=== PATIENT | female | born 1965 | race Caucasian/White ===

== ENCOUNTER 2017-07-22 18:56 | Emergency (ER) | payer SELFPAY ==
[~2017-07-22 18:56] MED LIST: DICY1TAB26 PO; OMEP20CA5 PO; Z.0.NO CURRENT MEDS
[2017-07-22 18:59] VITALS: BP 132/76; PULSE 107; RESP 18; TEMP 98.8; O2SAT 99
[2017-07-22] MEDS ORDERED: MULT-65 PO (19:33)
[2017-07-22] MEDS ORDERED: RESP: ALBUTEROL 2.5 MG/IPRATROPIUM 0.5 MG NEB (SCH) NEB ONE (19:45)
--- NOTE | 2017-07-22 19:54 | PD ---
HPI Chief Complaint: Respiratory Symptoms Time Seen by Provider: 19:26 Travel History International Travel<30 days: No Contact w/Intl Traveler<30days: No Traveled to known affect area: No History of Present Illness HPI Is a 51-year-old young woman presents to the emergency department complaining of cold congestion and rhinorrhea symptoms. She has had trouble with allergies normally. She works out in the sun a lot. She has had worse allergies in the past week but over the past couple days she has had more cough cold symptoms and is worried about pneumonia. No fevers or chills. She otherwise had been feeling generally well and healthy. She is taking Claritin but has not really helped. History Past Medical History Narrative Medical Allergic rhinitis Menopausal: Yes Social History Alcohol Use: Yes Tobacco Use: No Allergies-Medications (Allergen,Severity, Reaction): Coded Allergies: No Known Allergies (Verified , 12/16/09) Reported Meds & Prescriptions Reported Meds & Active Scripts Active Reported Multi-Vitamin Daily (Multiple Vitamin) 1 Tab Tab 1 Tab PO DAILY Review of Systems Except as stated in HPI: all other systems reviewed are Neg Physical Exam Narrative GENERAL: Well-appearing 51-year-old woman, no acute distress. SKIN: Focused skin assessment warm/dry. HEAD: Atraumatic. Normocephalic. EYES: Pupils equal and round. No scleral icterus. No injection or drainage. ENT: No nasal bleeding or discharge. Mucous membranes pink and moist. TMs are normal. Throat is normal. NECK: Trachea midline. No JVD. Minimal cervical adenopathy little bit tender. CARDIOVASCULAR: Regular rate and rhythm. No murmur appreciated. RESPIRATORY: No accessory muscle use. Clear to auscultation. Breath sounds equal bilaterally. GASTROINTESTINAL: Abdomen soft, non-tender, nondistended. Hepatic and splenic margins not palpable. MUSCULOSKELETAL: No obvious deformities. No clubbing. No cyanosis. No edema. NEUROLOGICAL: Awake and alert. No obvious cranial nerve deficits. Motor grossly within normal limits. Normal speech. PSYCHIATRIC: Appropriate mood and affect; insight and judgment normal. Data Data Last Documented VS Vital Signs Date Time Temp Pulse Resp B/P (MAP) Pulse Ox O2 Delivery O2 Flow Rate FiO2 07/22/17 19:34 20 99 Room Air 07/22/17 18:59 98.8 107 132/76 (94) Orders Orders Albuterol-Ipratropium Neb (Aditib Neb) (07/22/17 19:45) [facility] Medical Decision Making Medical Screen Exam Complete: Yes Emergency Medical Condition: Yes Differential Diagnosis URI, congestion, bronchitis, pneumonia, other Narrative Course Medical decision making Is a 51-year-old woman presents to the emergency department complaining of cough cold symptoms, likely URI, some shortness of breath. No wheezing on exam. She is instrument trying a breathing treatment. If this helps her we can send her with a bronchodilator. Otherwise recommend supportive treatment. Diagnosis Primary Impression: Wheezy bronchitis Additional Instructions: Use inhaler as needed for wheezing and bronchitis. If you are not improved in 48 hours or feeling worse tomorrow, take antibiotics as prescribed. Return to the emergency department for any new or worsening symptoms. Med/Other Pt SpecificInfo: Prescription(s) given Scripts Azithromycin (Azithromycin) 250 Mg Tab 250 MG PO DIRECTED for Infection, #6 TAB 0 Refills Take 2 tabs (500 mg) on day 1 then 1 tab daily x 4 days. Prov: Aldo Yi MD 07/22/17 Albuterol 18 GM Inh (Ventolin Hfa 18 GM Inh) 90 Mcg/Act Aer 2 PUFF INH Q6H Y for SHORTNESS OF BREATH, #1 INHALER 0 Refills Prov: Aldo Yi MD 07/22/17 Disposition: 01 DISCHARGE HOME Condition: Stable Aldo Yi MD Jul 22, 2017 19:54
[2017-07-22] MEDS ORDERED: VENTAER INH (20:08)
[2017-07-22] MEDS ORDERED: AZIT250T3 PO (20:08)
[2017-07-22 20:32] VITALS: BP 119/78
== END 2017-07-22 20:35 | disposition home or self-care (01) ==
LOC: PHED 18:56
DX: J40 Bronchitis, not specified as acute or chronic (principal); R06.2 Wheezing; R05 Cough; R06.02 Shortness of breath
CPT/HCPCS: 94664; 99283